=== PATIENT | male | born 1980 | race Two or more races ===

== ENCOUNTER 2021-11-06 07:41 | Emergency (ER) | payer MEDICAID ==
[~2021-11-06] VITALS: Ht 172.7 cm; Wt 154.6 kg
[2021-11-06 08:33] LABS: COVID AG,FIA SOURCE NASAL SWAB
[2021-11-06 09:00] LABS: INFLUENZA TYPE A NEGATIVE FOR TYPE A (NEGATIVE); INFLUENZA TYPE B NEGATIVE FOR TYPE B (NEGATIVE)
[2021-11-06 09:08] VITALS: BP 135/74
[2021-11-06] MEDS ORDERED: BENZ1LOZ50 PO (09:25)
[2021-11-06] MEDS ORDERED: DEXAMETHASONE 0.5 MG/5 ML SOLUTION ORAL.SYG PO ONE (09:30)
[2021-11-06] MEDS ORDERED: DEXAMETHASONE 4 MG TABLET PO ONE (10:00)
== END 2021-11-06 10:18 | disposition home or self-care (01) ==
LOC: EMS 07:46
DX: J02.9 Acute pharyngitis, unspecified (principal); R68.83 Chills (without fever); R52 Pain, unspecified; Z20.822 Contact with and (suspected) exposure to COVID-19
CPT/HCPCS: 87426; 87804; 99283; J8540